=== PATIENT | male | born 1980 | race African-American/Black ===

== ENCOUNTER 2016-11-30 12:42 | Emergency (ER) | payer SELFPAY ==
[~2016-11-30 12:42] MED LIST: FLUO20TA20 PO; QUET100 PO
[2016-11-30 12:44] VITALS: BP 109/71; PULSE 88; RESP 15; TEMP 97.7; O2SAT 99
--- NOTE | 2016-11-30 12:55 | PD ---
Physical Exam Date Seen by Provider: Nov 30, 2016 Time Seen by Provider: 12:53 Data Data Last Documented VS Vital Signs Date Time Temp Pulse Resp B/P Pulse Ox O2 Delivery O2 Flow Rate FiO2 11/30/16 12:44 97.7 88 15 109/71 99 MDM Supervised Visit with CELSO: No Narrative Course 36 YO M with complaint of suicidal ideation. Denies specific plan. History of depression. States "been thinking of killing myself since yesterday." States "I haven't been taking my meds." Vitals reviewed. Patient seen in triage, awaiting bed placement. Fiona Ahn Nov 30, 2016 12:55
--- NOTE | 2016-11-30 13:25 | PD ---
HPI Chief Complaint: Suicide Ideation/Attempt Time Seen by Provider: 13:10 Travel History International Travel<30 days: No Contact w/Intl Traveler<30days: No Traveled to known affect area: No History of Present Illness HPI 36-year-old Afro-[place] male presents to emergency Department with suicidal ideations. He is currently voluntary. He states a plan of taking about cutting his wrists. Patient has been Boyle act in the past, and was on antidepressant medications but states he has not been taking any medications for a couple of months. The patient denies any medical complaints. He is currently cooperative and appropriate. He denies any alcohol or drug abuse currently. He has no known drug allergies. PFSH Past Medical History Anxiety: Yes Depression: Yes Genitourinary: No Musculoskeletal: No Neurologic: No Reproductive: No Respiratory: No Past Surgical History Abdominal Surgery: No Cardiac Surgery: No Ear Surgery: No Endocrine Surgery: No Eye Surgery: No Genitourinary Surgery: No Gynecologic Surgery: No Oral Surgery: No Thoracic Surgery: No Social History Alcohol Use: Yes Tobacco Use: No Substance Use: Yes Allergies-Medications (Allergen,Severity, Reaction): Coded Allergies: No Known Allergies (Unverified , 12/23/15) Reported Meds & Prescriptions Reported Meds & Active Scripts Active Quetiapine Fumarate 100 Mg Tab 100 Mg PO HS 15 Days Fluoxetine Hcl (Fluoxetine HCl) 20MG Cap 20 Mg PO DAILY 15 Days Review of Systems Except as stated in HPI: all other systems reviewed are Neg General / Constitutional: No: Fever Eyes: No: Visual changes HENT: No: Headaches Cardiovascular: No: Chest Pain or Discomfort Respiratory: No: Shortness of Breath Gastrointestinal: No: Abdominal Pain Genitourinary: No: Dysuria Musculoskeletal: No: Pain Skin: No Rash Neurologic: No: Weakness Psychiatric: Positive: Depression, Suicidal Ideations Endocrine: No: Polydipsia Hematologic/Lymphatic: No: Easy Bruising Physical Exam Narrative GENERAL: Patient appears somewhat blunted but in no acute distress. He is cooperative. SKIN: Warm and dry. Normal color. Normal turgor. No signs of trauma. HEAD: Atraumatic. Normocephalic. EYES: Pupils equal and round. No scleral icterus. No injection or drainage. ENT: No nasal bleeding or discharge. Mucous membranes pink and moist. Pharynx is clear. Airway is patent. NECK: Trachea midline. Supple nontender. CARDIOVASCULAR: Regular rate and rhythm. RESPIRATORY: No accessory muscle use. Clear to auscultation. Breath sounds equal bilaterally. GASTROINTESTINAL: Abdomen soft, non-tender, nondistended. Hepatic and splenic margins not palpable. MUSCULOSKELETAL: Extremities without clubbing, cyanosis, or edema. No obvious deformities. NEUROLOGICAL: Awake and alert. No obvious cranial nerve deficits. Motor grossly within normal limits. Five out of 5 muscle strength in the arms and legs. Normal speech. PSYCHIATRIC: Appropriate mood and affect; insight and judgment normal. Data Data Last Documented VS Vital Signs Date Time Temp Pulse Resp B/P Pulse Ox O2 Delivery O2 Flow Rate FiO2 11/30/16 12:44 97.7 88 15 109/71 99 Orders Complete Blood Count With Diff (11/30/16 13:01) Comprehensive Metabolic Panel (11/30/16 13:01) Psych Screen (11/30/16 13:01) Drug Screen, Random Urine (11/30/16 13:01) Alcohol (Ethanol) (11/30/16 13:01) Diet Regular Basic (11/30/16 Lunch) Nicotine 21 Mg Patch.24 Hr (Habitrol 21 (11/30/16 13:45) Labs Laboratory Tests Test 11/30/16 13:25 White Blood Count 5.5 TH/MM3 Red Blood Count 5.19 MIL/MM3 Hemoglobin 15.4 GM/DL Hematocrit 45.4 % Mean Corpuscular Volume 87.5 FL Mean Corpuscular Hemoglobin 29.6 PG Mean Corpuscular Hemoglobin 33.8 % Concent Red Cell Distribution Width 13.6 % Platelet Count 253 TH/MM3 Mean Platelet Volume 7.4 FL Neutrophils (%) (Auto) 36.3 % Lymphocytes (%) (Auto) 45.2 % Monocytes (%) (Auto) 10.7 % Eosinophils (%) (Auto) 7.3 % Basophils (%) (Auto) 0.5 % Neutrophils # (Auto) 2.0 TH/MM3 Lymphocytes # (Auto) 2.5 TH/MM3 Monocytes # (Auto) 0.6 TH/MM3 Eosinophils # (Auto) 0.4 TH/MM3 Basophils # (Auto) 0.0 TH/MM3 CBC Comment DIFF FINAL Differential Comment Sodium Level 140 MEQ/L Potassium Level 4.2 MEQ/L Chloride Level 103 MEQ/L Carbon Dioxide Level 32.1 MEQ/L Anion Gap 5 MEQ/L Blood Urea Nitrogen 9 MG/DL Creatinine 1.22 MG/DL Estimat Glomerular Filtration 81 ML/MIN Rate Random Glucose 89 MG/DL Calcium Level 8.9 MG/DL Total Bilirubin 0.4 MG/DL Aspartate Amino Transf 23 U/L (AST/SGOT) Alanine Aminotransferase 40 U/L (ALT/SGPT) Alkaline Phosphatase 55 U/L Total Protein 7.4 GM/DL Albumin 3.6 GM/DL Urine Opiates Screen NEG Urine Barbiturates Screen NEG Urine Amphetamines Screen NEG Urine Benzodiazepines Screen NEG Urine Cocaine Screen POS Urine Cannabinoids Screen NEG Ethyl Alcohol Level LESS THAN 3 MG/DL MDM Medical Decision Making Medical Screen Exam Complete: Yes Emergency Medical Condition: Yes Medical Record Reviewed: Yes Differential Diagnosis History of depression. Suicidal ideation. Need for psychiatric eval. Narrative Course Patient appears medically stable at time of exam. Psychiatric labs including serum alcohol and urine drug screen are ordered per protocol. Psych screen is ordered. Patient is medically cleared for psychiatric evaluation. Diagnosis Primary Impression: Depression with suicidal ideation Additional Impression: Medical clearance for psychiatric admission Condition: Stable Artemio Martinez Nov 30, 2016 13:25
[2016-11-30] MEDS ORDERED: NICOTINE 21 MG/24 HR PATCH T-DERMAL ONE (13:45)
[2016-11-30 14:13] LABS: BASOPHIL % 0.5 % (0.0-2.0); EOSINOPHIL # 0.4 TH/MM3 (0-0.4); EOSINOPHIL % 7.3 % (0.0-4.0); HEMATOCRIT 45.4 % (39.0-51.0); HEMO FLAGS DIFF FINAL; LYMPH % 45.2 % (9.0-44.0); LYMPHOCYTE # 2.5 TH/MM3 (1.0-4.8); MEAN CELL VOLUME 87.5 FL (80.0-100.0); MEAN CORPUSCULAR HEMOGLOBIN 29.6 PG (27.0-34.0); MEAN CORPUSCULAR HGB CONC 33.8 % (32.0-36.0); MONO % 10.7 % (0.0-8.0); NEUT % 36.3 % (16.0-70.0); PLATELET COUNT 253 TH/MM3 (150-450); RED BLOOD COUNT 5.19 MIL/MM3 (4.50-5.90); RED CELL DISTRIBUTION WIDTH 13.6 % (11.6-17.2); WHITE BLOOD COUNT 5.5 TH/MM3 (4.0-11.0)
[2016-11-30 14:14] LABS: AMPHETAMINE, URINE NEG (NEG); BARBITURATES, URINE NEG (NEG); COCAINE, URINE POS (NEG)
[2016-11-30 14:23] LABS: ANION GAP 5 MEQ/L (5-15); AST (GOT) 23 U/L (15-37); BICARBONATE 32.1 MEQ/L (21.0-32.0); BLOOD UREA NITROGEN 9 MG/DL (7-18); CHLORIDE 103 MEQ/L (98-107); GLOMERULAR FILTRATION RATE 81 ML/MIN (>89); POTASSIUM 4.2 MEQ/L (3.5-5.1); SODIUM (NA) 140 MEQ/L (136-145)
[2016-11-30 14:24] LABS: ALT (GPT) 40 U/L (12-78)
[2016-11-30 14:26] LABS: ALKALINE PHOSPHATASE 55 U/L (45-117); TOTAL BILIRUBIN ADULT 0.4 MG/DL (0.2-1.0)
[2016-11-30 18:04] VITALS: BP 115/60; PULSE 69; RESP 18; TEMP 98.7; O2SAT 96
[2016-11-30] MEDS ORDERED: OLANZapine 10 MG TAB PO ONE (18:15)
[2016-11-30] MEDS ORDERED: diphenhydrAMINE HCL 50 MG CAP PO ONE (18:15)
[2016-11-30 23:19] VITALS: BP 100/55; PULSE 57; RESP 18
[2016-12-01 02:11] VITALS: BP 109/65; PULSE 65; RESP 20; TEMP 98.9; O2SAT 96
== END 2016-12-01 04:05 ==
LOC: NEPD 12:42 → NEPJ 12-01 04:05
DX: R45.851 Suicidal ideations (principal); F32.9 Major depressive disorder, single episode, unspecified; F41.9 Anxiety disorder, unspecified; Z79.899 Other long term (current) drug therapy
CPT/HCPCS: 80053; 80307; 85025; 99284; Q0163

== ENCOUNTER 2016-12-06 09:10 | Emergency (ER) | payer SELFPAY ==
[~2016-12-06] VITALS: Ht 180.3 cm; Wt 75.9 kg
[2016-12-06 09:10] VITALS: BP 110/64; PULSE 96; RESP 12; TEMP 97.6; O2SAT 97
[2016-12-06 09:12] VITALS: BP 110/64; PULSE 96; RESP 18; TEMP 97.6
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
[2016-12-06 10:44] LABS: AUTOMATED NEUTROPHIL # 2.8 TH/MM3 (1.8-7.7); BASOPHIL % 0.7 % (0.0-2.0); EOSINOPHIL # 0.5 TH/MM3 (0-0.4); EOSINOPHIL % 8.7 % (0.0-4.0); HEMATOCRIT 46.4 % (39.0-51.0); HEMO FLAGS DIFF FINAL; LYMPH % 33.7 % (9.0-44.0); LYMPHOCYTE # 2.1 TH/MM3 (1.0-4.8); MEAN CELL VOLUME 88.3 FL (80.0-100.0); MEAN CORPUSCULAR HEMOGLOBIN 30.7 PG (27.0-34.0); MEAN CORPUSCULAR HGB CONC 34.8 % (32.0-36.0); MONO % 10.7 % (0.0-8.0); NEUT % 46.2 % (16.0-70.0); PLATELET COUNT 256 TH/MM3 (150-450); RED BLOOD COUNT 5.25 MIL/MM3 (4.50-5.90); RED CELL DISTRIBUTION WIDTH 13.7 % (11.6-17.2); WHITE BLOOD COUNT 6.1 TH/MM3 (4.0-11.0)
[2016-12-06 11:10] LABS: ANION GAP 6 MEQ/L (5-15); AST (GOT) 36 U/L (15-37); BICARBONATE 27.8 MEQ/L (21.0-32.0); BLOOD UREA NITROGEN 13 MG/DL (7-18); CHLORIDE 101 MEQ/L (98-107); GLOMERULAR FILTRATION RATE 91 ML/MIN (>89); SODIUM (NA) 135 MEQ/L (136-145)
[2016-12-06 11:11] LABS: ALT (GPT) 62 U/L (12-78)
[2016-12-06 11:13] LABS: ALKALINE PHOSPHATASE 53 U/L (45-117); TOTAL BILIRUBIN ADULT 0.5 MG/DL (0.2-1.0)
[2016-12-06 13:23] VITALS: BP 138/72; PULSE 78; RESP 18; O2SAT 99
[2016-12-06 16:29] VITALS: BP 130/89; PULSE 72; RESP 18; O2SAT 100
[2016-12-06] MEDS ORDERED: SERO100T PO (17:45)
[2016-12-06] MEDS ORDERED: FLUO20CA12 PO (17:45)
[2016-12-06 19:21] VITALS: BP 107/63; PULSE 75; RESP 16; O2SAT 96
[2016-12-06 22:21] VITALS: BP 107/55; PULSE 67; RESP 20
[2016-12-07 05:56] VITALS: BP 106/61; PULSE 75; RESP 20
[2016-12-07 10:00] VITALS: BP 112/55; PULSE 76; RESP 18
[2016-12-07 18:06] VITALS: BP 115/78; PULSE 82; RESP 18; TEMP 96.5; O2SAT 100
== END 2016-12-07 20:50 ==
LOC: NEPD 09:10 → NEPJ 12-07 20:50
DX: F32.9 Major depressive disorder, single episode, unspecified (principal); R45.851 Suicidal ideations; Z79.899 Other long term (current) drug therapy
CPT/HCPCS: 80053; 80307; 85025; 99285

== ENCOUNTER 2016-12-18 21:36 | Inpatient (IN) | payer SELFPAY ==
[~2016-12-18] VITALS: Ht 177.8 cm; Wt 78.8 kg
[~2016-12-18 21:36] MED LIST changes: +FLUO20CA12 PO; -FLUO20TA20 PO; -QUET100 PO; +SERO100T PO
[2016-12-18 21:39] VITALS: BP 106/66; PULSE 100; RESP 16; TEMP 98.5; O2SAT 95
--- NOTE | 2016-12-19 04:00 | PD ---
HPI Chief Complaint: Psychiatric Symptoms Time Seen by Provider: 03:47 Travel History International Travel<30 days: No Contact w/Intl Traveler<30days: No Traveled to known affect area: No History of Present Illness HPI 36-year-old black male with a history of substance abuse returns to the ER again stating that he is having hallucinations. He states that his hearing voices telling him to hurt himself or hurt someone. The patient appears to be more interested and laying down sleeping then to give a history. He states that he is suffering from mental illness and needs to be admitted. The patient covers up with a blanket and declines to give additional history. He merely mumbles that he is suffering from mental illness and is hearing voices. The patient does admit to substance abuse. He states that he has not used for the past 3-4 days. Patient is also homeless. PFSH Past Medical History Anxiety: Yes Depression: Yes Diminished Hearing: No Genitourinary: No Musculoskeletal: No Neurologic: No Psychiatric: Yes Reproductive: No Respiratory: No Past Surgical History Abdominal Surgery: No Cardiac Surgery: No Ear Surgery: No Endocrine Surgery: No Eye Surgery: No Genitourinary Surgery: No Gynecologic Surgery: No Oral Surgery: No Thoracic Surgery: No Social History Alcohol Use: No Tobacco Use: No Substance Use: Yes Allergies-Medications (Allergen,Severity, Reaction): Coded Allergies: No Known Allergies (Unverified , 12/18/16) Reported Meds & Prescriptions Reported Meds & Active Scripts Active Reported Seroquel (Quetiapine Fumarate) 100 Mg Tab 100 Mg PO HS Fluoxetine (Fluoxetine HCl) 20 Mg Capsule 20 Mg PO DAILY Review of Systems ROS Limitations: Uncooperative, Poor Historian Physical Exam Narrative GENERAL: Well-nourished, well-developed patient. SKIN: Warm and dry. HEAD: Normocephalic and atraumatic. EYES: No scleral icterus. No injection or drainage. ENT: No nasal drainage noted. Mucous membranes pink. Airway patent. NECK: Supple, trachea midline. Moves head freely without obvious discomfort. CARDIOVASCULAR: Regular rate and rhythm without murmurs, gallops, or rubs. RESPIRATORY: Breath sounds equal bilaterally. No accessory muscle use. GASTROINTESTINAL: Abdomen soft, non-tender, nondistended. EXTREMITIES: No cyanosis or edema. BACK: Nontender without obvious deformity. No CVA tenderness. NEURO: Patient is alert and oriented. no sensorimotor deficits. Nonfocal. Normal speech. PSYCH: Patient reports having auditory hallucinations reporting that the voices are telling him to do self-harm or harm to others. Data Data Last Documented VS Vital Signs Date Time Temp Pulse Resp B/P (MAP) Pulse Ox O2 Delivery O2 Flow Rate FiO2 12/18/16 21:39 98.5 100 16 106/66 (79) 95 Room Air Orders Orders Psych Screen (12/19/16 03:54) Drug Screen, Random Urine (12/19/16 03:54) MDM Medical Decision Making Medical Screen Exam Complete: Yes Emergency Medical Condition: Yes Medical Record Reviewed: Yes Differential Diagnosis MDM: High Differential diagnoses: Schizophrenia, schizoaffective disorder, bipolar, anxiety, depression, adjustment reaction, mood disorder NOS, psychosis NOS, substance induced mood disorder, malingering. Mental health screening discussed with the patient. Psychiatric screen ordered. Narrative Course Mental health screening discussed with the patient. Psychiatric screen ordered. The patient has been medically cleared. The only laboratory tests have ordered today as a urine drug screen again. I suspect the patient is still using and is malingering to ascertain undomiciled. The patient on my history and exam is more interested in sleeping then getting evaluated for his voices. This is medical clearance for psychiatric admission, substance abuse, malingering Diagnosis Primary Impression: Medical clearance for psychiatric admission Additional Impressions: Polysubstance dependence Malingering Condition: Rich Baird Dec 19, 2016 04:00
[2016-12-19 08:32] VITALS: BP 107/64; PULSE 74; RESP 14; O2SAT 98
[2016-12-19 16:45] VITALS: BP 147/77; PULSE 63; RESP 16; TEMP 98.4; O2SAT 97
[2016-12-19 22:18] VITALS: BP 115/64; PULSE 71; RESP 16; O2SAT 99
[2016-12-20 02:00] VITALS: BP 129/67; PULSE 68; RESP 18; O2SAT 96
[2016-12-20 06:38] VITALS: BP 109/58; PULSE 58; RESP 19; O2SAT 97
--- NOTE | 2016-12-20 07:35 | PD ---
History of Present Illness Chief Complaint: Psychiatric Symptoms Time Seen by Provider: 07:15 Travel History International Travel<30 Days: No Contact w/Intl Traveler<30days: No Known affected area: No Legal Status Legal Status: Voluntary History of Present Illness: History of Present Illness HPI 36-year-old black male with a history of substance abuse and substance induced psychotic disorder who presents to the ED for evaluation and reporting auditory hallucinations . He states that his hearing voices telling him to hurt himself or hurt someone. At the time of his arrival to ED he was not cooperative with evaluation possibly to his intoxicated state. He was moved to J pod for further observation and evaluation. Patient seen. EMR reviewed. His last psychiatric admission was in November of 2015. Current toxicology is positive for cocaine. The patient is seen again in in J pod. He is an AA male with dread s. His hygiene is poor. His speech is very soft tone. He answers questions but does not initiate interaction. he appears internally preoccupied. He continues to endorse A/H " I am hearing voices that tell me to hurt people". He also endorse feeling depressed . Claims has been taking Seroquel up until his presenting to ED. PFSH Past Medical History Anxiety: Yes Depression: Yes Diminished Hearing: No Genitourinary: No Musculoskeletal: No Neurologic: No Psychiatric: Yes Reproductive: No Respiratory: No Tetanus Vaccination: Unknown Past Surgical History Abdominal Surgery: No Cardiac Surgery: No Ear Surgery: No Endocrine Surgery: No Eye Surgery: No Genitourinary Surgery: No Gynecologic Surgery: No Oral Surgery: No Thoracic Surgery: No Psychiatric History Psychiatric History Hx Psychiatric Treatment: One previous psychiatric [place] [facility] Has been receiving services at [facility] History of Inpatient Treatment: Yes Guns or firearms in home: No Social History Single male. Homeless x 2 months. Unemployed. Hx Alcohol Use: No Hx Tobacco Use: No Hx Substance Use: Yes Substance Use Type: Cocaine Other Substances Used: MINIMIZES USE. WAS HERE November, POSITIVE FOR COCAINE Hx of Substance Use Treatment: No Family Psychiatric History Unknown. Allergies-Medications (Allergen,Severity, Reaction): Coded Allergies: No Known Allergies (Unverified , 12/19/16) Reported Meds & Prescriptions Reported Meds & Active Scripts Active Reported Seroquel (Quetiapine Fumarate) 100 Mg Tab 100 Mg PO HS Fluoxetine (Fluoxetine HCl) 20 Mg Capsule 20 Mg PO DAILY Review of Systems Except as stated in HPI: all other systems reviewed are Neg Exam Alert: Yes [place]: Person (ox4) Mood: Depressed Affect: Restricted Speech: Clear Eye Contact: None Memory Intact: Comment (not impaired) Hallucinations: Auditory (command type) Delusions: No Suicidal: Ideation (denies any) Homicidal: Ideation (denies any) Insight/Judgement Poor. Not impaired. MDM Medical Decision Making Medical Record Reviewed: Yes Assessment/Plan 36-year-old black male with a history of substance abuse and substance induced psychotic disorder who presents to the ED for evaluation and reporting auditory hallucinations. Patient with positive toxicology for cocaine. Patient continues to report auditory hallucinations after extended period of time in J pod. Patient at this time meets criteria for inpatient treatment for further evaluation, initiate treatment and maintain safety. Admit to inpatient Orders Orders Diet Regular Basic (12/19/16 Breakfast) Consult [facility] I&C Technician (12/19/16 ) Diet Regular Basic (12/19/16 Dinner) Diet Regular Basic (12/20/16 Breakfast) Results Vital Signs Date Time Temp Pulse Resp B/P (MAP) Pulse Ox O2 Delivery O2 Flow Rate FiO2 12/20/16 06:38 58 19 109/58 (75) 97 12/20/16 02:00 68 18 129/67 (87) 96 Room Air 12/19/16 22:18 71 16 115/64 (81) 99 Room Air 12/19/16 16:45 98.4 63 16 147/77 (100) 97 12/19/16 08:32 74 14 107/64 (78) 98 Room Air Laboratory Tests Test 12/19/16 22:04 Urine Opiates Screen NEG Urine Barbiturates Screen NEG Urine Amphetamines Screen NEG Urine Benzodiazepines Screen NEG Urine Cocaine Screen POS Urine Cannabinoids Screen NEG Diagnosis Primary Impression: Substance or medication-induced psychotic disorder Additional Impression: Polysubstance dependence Admitting Information Admitting Physician Requests: Admit Condition: Stable Problem Qualifiers Primary Impression: Substance or medication-induced psychotic disorder Qualified Codes: F19.951 - Other psychoactive substance use, unspecified with psychoactive substance-induced psychotic disorder with hallucinations Anna Marie Baumann [employer] Dec 20, 2016 07:35
[2016-12-20] MEDS ORDERED: ALUMINUM/MAGNESIUM/SIMETH 30 ML CUP PO PRN (07:45)
[2016-12-20] MEDS ORDERED: ACETAMINOPHEN 325 MG TAB PO PRN (07:45)
[2016-12-20] MEDS ORDERED: MAGNESIUM HYDROXIDE SUSP 30 ML CUP PO PRN (07:45)
[2016-12-20] MEDS ORDERED: HALOPERIDOL 5 MG TAB PO ONE (07:45)
[2016-12-20] MEDS: FLUoxetine HCL 20 MG CAP PO SCH (09:05)
[2016-12-20 10:16] VITALS: BP 114/65; PULSE 77; RESP 18; TEMP 98.1; O2SAT 99
[2016-12-20 17:42] VITALS: BP 110/69; PULSE 85; RESP 18; TEMP 98.1; O2SAT 96
[2016-12-20] MEDS: QUEtiapine FUMARATE 100 MG TAB PO SCH (21:28)
[2016-12-21 06:01] VITALS: BP 142/63; PULSE 48; RESP 17; TEMP 98; O2SAT 95
[2016-12-21] MEDS: FLUoxetine HCL 20 MG CAP PO SCH (08:36)
--- NOTE | 2016-12-21 10:15 | HHI.HP ---
Provisional Diagnosis Admission Date Dec 20, 2016 at 07:39 [place] I. Cocaine abuse Certification of Person's Competence To Provide Express and Informed Consent I have personally examined Krish Valenzuela , a person being served at [facility] on, Dec 21, 2016 10:11. Express and informed consent means consent voluntarily given in writing, by a competent person, after sufficient explanation and disclosure of the subject matter involved to enable the person to make a knowing and willful decision without any element of force, fraud, deceit, duress, or other form of constraint or coercion. This person is 18 years of age or older, is not now known to be incompetent to consent to treatment with a guardian advocate, and does not have a health care surrogate or proxy currently making medical treatment decisions. I have found this person to be one of the following: [x] Competent to provide express and informed consent, as defined above, for voluntary admission to this facility and is competent to provide express and informed consent for treatment. He/she has the consistent capacity to make well reasoned, willful, and knowing decisions concerning his or her medical or mental health treatment. The person fully and consistently understands the purpose of the admission for examination/placement and is fully capable of personally exercising all rights assured [place] [] Incompetent to provide express and informed consent to voluntary admission, and this is incompetent to provide express and informed consent to treatment. The person must be transferred to involuntary status and a petition for a guardian advocate filed with the Circuit Court. [] Refusing to provide express and informed consent to voluntary admission but is competent to provide express and informed consent for treatment. The person must be discharged or transferred to involuntary status. Form shall be completed within 24 hours of a person's arrival at the receiving facility and filed in the clinical record of each person: 1. Admitted on a voluntary basis 2. Permitted to provide express and informed consent to his/her own treatment 3. Allowed to transfer from involuntary to voluntary status 4. Prior to permitting a person to consent to his or her own treatment after having been previously found incompetent to consent to treatment. History of Present Illness Capacity: Has Capacity HPI 36-year-old male seen in emergency department prior to evaluation [facility] [employer] and admission. Patient admitted due to reports of auditory hallucinations telling him to hurt others. Patient has history of cocaine abuse dating back one year ago. He was positive for cocaine on this admission. He speaks softly or not at all. Patient admitted for further evaluation and possible treatment. He is not communicative with this physician and wants to sleep. Review of Systems Except as stated in HPI: all other systems reviewed are Neg Past Psych History Psychological trauma history Denied Violence risk - others (6 mos) Moderate Violence risk - self (6 mos) Moderate Substance Abuse History Drugs/Alcohol past 12 months At least one year history of cocaine abuse. Past Family Social History Coded Allergies: No Known Allergies (Unverified , 12/19/16) Reported Medications Quetiapine (Seroquel) 100 Mg Tab, 100 MG PO HS for MENTAL HEALTH, #30 TAB 0 Refills 12/06/16 Fluoxetine (Fluoxetine) 20 Mg Capsule, 20 MG PO DAILY for MENTAL HEALTH, #30 CAP 0 Refills 12/06/16 Current Medications Medications (Trade) Dose Ordered Sig/Dara Route Start Time Stop Time Status Last Admin (Tylenol) 650 mg Q4H PRN PO 12/20/16 07:45 (Milk Of Magnesia Liq) 30 ml DAILY PRN PO 12/20/16 07:45 (Mag-Al Plus Susp Liq) 30 ml Q6H PRN PO 12/20/16 07:45 (PROzac) 20 mg DAILY PO 12/20/16 09:00 12/21/16 08:36 (SEROquel) 100 mg HS PO 12/20/16 21:00 12/20/16 21:28 Family History Declined to answer Social History Declined to answer Patient's Strengths (min. 2) Resilient and has access to healthcare Physical Exam GENERAL: SKIN: Warm and dry. HEAD: Normocephalic. EYES: No scleral icterus. No injection or drainage. NECK: Supple, trachea midline. No JVD or lymphadenopathy. CARDIOVASCULAR: Regular rate and rhythm without murmurs, gallops, or rubs. RESPIRATORY: Breath sounds equal bilaterally. No accessory muscle use. GASTROINTESTINAL: Abdomen soft, non-tender, nondistended. MUSCULOSKELETAL: No cyanosis, or edema. BACK: Nontender without obvious deformity. No CVA tenderness. Vital Signs Vital Signs Date Time Temp Pulse Resp B/P (MAP) Pulse Ox O2 Delivery O2 Flow Rate FiO2 12/21/16 06:01 98.0 48 17 142/63 (89) 95 12/20/16 02:00 Room Air Mental Status Examination Speech: Other (minimal and soft) Orientation: x3 Memory: Unremarkable Thought Process: Organized, Goal Directed Thought Content: Unremarkable Hallucination Type: None Attention and Concentration: Good Suicidal Ideation: No Previous Suicide Attempts: No Homicidal Ideation: No Previous Homicide Attempts: No Insight: Fair Judgment: WNL Affect: Other Affect if Inappropriate: Blunt Mood: Appropriate Motor Activity: Normal gait Assessment & Plan Problem List: (1) Cocaine abuse ICD Codes: F14.10 - Cocaine abuse, uncomplicated Assessment & Plan Estimated LOS: days will observe over the next 24-48 hours for marco antonio smita psychotic symptoms or not. Will observe for dangerousness to self or others. Blair Molina MD Dec 21, 2016 10:15
[2016-12-21 15:04] LABS: ANION GAP 9 MEQ/L (5-15); BICARBONATE 29.9 MEQ/L (21.0-32.0); BLOOD UREA NITROGEN 17 MG/DL (7-18); CHLORIDE 101 MEQ/L (98-107); GLOMERULAR FILTRATION RATE 61 ML/MIN (>89); POTASSIUM 4.4 MEQ/L (3.5-5.1); SODIUM (NA) 140 MEQ/L (136-145)
[2016-12-21 15:07] LABS: HDL CHOLESTEROL 76.5 MG/DL (40.0-60.0); LDL CHOLESTEROL 48 MG/DL (0-99)
[2016-12-21] MEDS: NICOTINE 21 MG/24 HR PATCH T-DERMAL SCH (17:08)
[2016-12-21 17:40] VITALS: BP 113/55; PULSE 78; RESP 18; TEMP 98.2; O2SAT 96
--- NOTE | 2016-12-21 18:44 | EKG ---
Date Performed: 12/20/2016 Time Performed: 12:15:28 PTAGE: 36 years EKG: Sinus rhythm NORMAL ECG NO PREVIOUS TRACING DOCTOR: Bandar Ricci Interpretating Date/Time 12/21/2016 18:42:55
[2016-12-21] MEDS: QUEtiapine FUMARATE 100 MG TAB PO SCH (21:02)
[2016-12-22 06:24] VITALS: BP 105/55; PULSE 72; RESP 18; TEMP 98.3; O2SAT 100
[2016-12-22] MEDS: FLUoxetine HCL 20 MG CAP PO SCH (08:47)
[2016-12-22] MEDS: REMOVE OLD NICODERM (NICOTINE) PATCH T-DERMAL SCH (08:48)
[2016-12-22] MEDS: NICOTINE 21 MG/24 HR PATCH T-DERMAL SCH (08:48)
[2016-12-22 10:26] LABS: HEMOGLOBIN A1a 0.8 %; HEMOGLOBIN A1b 0.9 %; HEMOGLOBIN Ao 85.9 %; HEMOGLOBIN F 1.1 %; HEMOGLOBIN LA1C 1.8 %; HEMOGLOBIN P3 3.6 %
--- NOTE | 2016-12-22 15:39 | HHI.PYPN ---
Subjective Remarks Pt seen and discussed with staff. He was selectively mute with RN this morning, but later asked RN for tylenol for a headache. When presented with medication he stated, "that can be traced" and declined medications. He denied AVH (but appears internally stimulated) today but expressed paranoid ideations.He states that he feels as if someone is in the room with him watching him and planning to harm him. He reports that he is tolerating seroquel without side effects and it has been helpful in past with remission of psychosis. He denies SI/HI Objective Alert: Yes [place]: Person, Place, Date, Situation Mood: Depressed Affect: Restricted Memory Intact: Comment (intact) Hallucinations: Auditory (appears internally stimulated) Delusions: Yes Delusion Type: Paranoid Suicidal: Ideation (denies any) Homicidal: Ideation (denies any) Insight/Judgment poor Vitals/IOs Vital Signs Date Time Temp Pulse Resp B/P (MAP) Pulse Ox O2 Delivery O2 Flow Rate FiO2 12/22/16 06:24 98.3 72 18 105/55 (72) 100 12/20/16 02:00 Room Air Assessment & Plan Problem List: (1) Psychosis ICD Codes: F29 - Unspecified psychosis not due to a substance or known physiological condition (2) Cocaine abuse ICD Codes: F14.10 - Cocaine abuse, uncomplicated Assessment & Plan Will increase seroquel to 200mg PO QHS to target psychosis. Estimated LOS: days Justification for Cont. Inpt. impairments in reality testing Problem Qualifiers (1) Psychosis: Qualified Codes: F28 - Other psychotic disorder not due to a substance or known physiological condition Marci Medina MD Dec 22, 2016 15:39
[2016-12-22 16:12] VITALS: BP 114/60; PULSE 74; RESP 18; TEMP 98.1; O2SAT 100
[2016-12-22] MEDS: QUEtiapine FUMARATE 200 MG TAB PO SCH (21:26)
[2016-12-23 06:11] VITALS: BP 98/55; PULSE 65; RESP 18; TEMP 98.1
[2016-12-23] MEDS: REMOVE OLD NICODERM (NICOTINE) PATCH T-DERMAL SCH (08:32)
[2016-12-23] MEDS: NICOTINE 21 MG/24 HR PATCH T-DERMAL SCH (08:32)
[2016-12-23] MEDS: FLUoxetine HCL 20 MG CAP PO SCH (08:32)
--- NOTE | 2016-12-23 10:35 | HHI.PYPN ---
Subjective Remarks Patient seen and examined with nurse. Chart reviewed. Case discussed with nursing staff who reports patient is preoccupied and vague and somewhat guarded. On my examination today, the patient denies audiovisual hallucinations but does appear somewhat to be responding to internal stimuli. He denies any SI or HI. He says that he had been off of his psychiatric medications for a few days prior to presentation. He does endorse some residual paranoia, although this is improving now that his psychiatric medications have been resumed. He denies side effects from medications and says that he is at his normally prescribed outpatient doses. No physical complaints besides a sore throat/cough. We discuss his substance use issues briefly. Review of Systems Except as stated in HPI: all other systems reviewed are Neg Objective Alert: Yes [place]: Person, Place, Date, Situation Mood: Calm (somewhat dysphoric ) Affect: Flat Memory Intact: Comment (intact) Hallucinations: Auditory (Denies AVH but appears to be responding to internal stimuli.) Delusions: Yes Delusion Type: Paranoid Suicidal: Ideation (Denies SI) Homicidal: Ideation (Denies HI) Insight/Judgment Poor Remarks No motor abnormalities noted. Thought process linear. Grooming and hygiene fair. Labs Labs reviewed. Mildly decreased GFR noted. Toxicology results noted. Vitals/IOs Vital Signs Date Time Temp Pulse Resp B/P (MAP) Pulse Ox O2 Delivery O2 Flow Rate FiO2 12/23/16 06:11 98.1 65 18 98/55 (69) 12/22/16 16:12 100 12/20/16 02:00 Room Air Assessment & Plan Problem List: (1) Psychosis ICD Codes: F29 - Unspecified psychosis not due to a substance or known physiological condition Status: Acute (2) Cocaine abuse ICD Codes: F14.10 - Cocaine abuse, uncomplicated Status: Chronic Assessment & Plan Continue Seroquel 200 mg at bedtime and Prozac 20 mg daily as ordered. I offered patient medication adjustment, but he says he normally response to current doses. Symptomatic treatment for patient sore throat/cough. Encourage fluids. Check a BMP in the morning. Continue to monitor on an inpatient unit. Continue other medications and care as ordered. Justification for Cont. Inpt. Resolving impairment in reality construction. Risk for decompensation in less restrictive environment. Discharge Planning Pending psychiatric stabilization. Possible middle of the week discharge. Request HC Surrog/Guard Advoc?: No Problem Qualifiers (1) Psychosis: Qualified Codes: F28 - Other psychotic disorder not due to a substance or known physiological condition Darrel Sun MD Dec 23, 2016 10:35
[2016-12-23] MEDS: BENZOCAINE-MENTHOL (SUGAR FREE) 15 MG-3.6 MG LOZENGE BUCCAL PRN ×2 (15:41→22:00)
[2016-12-23] MEDS: DEXTROMETHORPHAN SYRUP 7.5MG/5ML UDC PO PRN (15:41)
[2016-12-23 16:43] VITALS: BP 104/61; PULSE 88; RESP 18; TEMP 98.2; O2SAT 92
[2016-12-23] MEDS: QUEtiapine FUMARATE 200 MG TAB PO SCH (20:11)
[2016-12-24 05:45] VITALS: BP 113/56; PULSE 65; RESP 18; TEMP 98.1; O2SAT 100
[2016-12-24 06:05] VITALS: BP 113/56; PULSE 65; RESP 18; TEMP 98.1; O2SAT 100
[2016-12-24] MEDS: NICOTINE 21 MG/24 HR PATCH T-DERMAL SCH (08:18)
[2016-12-24] MEDS: DEXTROMETHORPHAN SYRUP 7.5MG/5ML UDC PO PRN ×2 (08:18→21:32)
[2016-12-24] MEDS: FLUoxetine HCL 20 MG CAP PO SCH (08:18)
[2016-12-24] MEDS: REMOVE OLD NICODERM (NICOTINE) PATCH T-DERMAL SCH (08:19)
[2016-12-24] MEDS: BENZOCAINE-MENTHOL (SUGAR FREE) 15 MG-3.6 MG LOZENGE BUCCAL PRN ×2 (08:20→21:31)
[2016-12-24 13:08] LABS: BICARBONATE 29.7 MEQ/L (21.0-32.0); POTASSIUM 4.3 MEQ/L (3.5-5.1)
--- NOTE | 2016-12-24 14:42 | HHI.PYPN ---
Subjective Remarks Patient seen and examined. Chart reviewed. Case discussed in treatment team. Per nurse, patient has been somewhat flirtatious with females although otherwise in good behavioral control. Occupational therapist notes that the patient is not attending groups. Counselor subsequently informs me that the patient does not presently have a bed at the sober living by which he purports to have been accepted. On my examination today, the patient says that he is feeling better. His mood is improving. He slept okay last night. He denies audiovisual hallucinations. He denies suicidal or homicidal ideation. He is under the impression that he has a bed at a sober living house today, but see report from Counselor above. Denies side effects from medications. No new physical complaints. Review of Systems Except as stated in HPI: all other systems reviewed are Neg Objective Alert: Yes [place]: Person, Place, Date, Situation Mood: Depressed (improving) Affect: Blunted Memory Intact: Comment (remains intact) Hallucinations: Other (Denies AVH) Delusions: No Delusion Type: Other (none elicited) Suicidal: Ideation (Denies SI) Homicidal: Ideation (Denies HI) Insight/Judgment Poor Remarks No motor abnormalities noted. Thought process linear. Grooming and hygiene fair. Labs Test 12/24/16 11:31 Blood Urea Nitrogen 12 MG/DL Creatinine 1.13 MG/DL Random Glucose 86 MG/DL Calcium Level 8.8 MG/DL Sodium Level 138 MEQ/L Potassium Level 4.3 MEQ/L Chloride Level 100 MEQ/L Carbon Dioxide Level 29.7 MEQ/L Anion Gap 8 MEQ/L Estimat Glomerular Filtration Rate 88 ML/MIN Labs reviewed. GFR improved. Vitals/IOs Vital Signs Date Time Temp Pulse Resp B/P (MAP) Pulse Ox O2 Delivery O2 Flow Rate FiO2 12/24/16 06:05 98.1 65 18 113/56 (75) 100 Assessment & Plan Problem List: (1) Other recurrent depressive disorders ICD Codes: F33.8 - Other recurrent depressive disorders Status: Acute (2) Cocaine abuse ICD Codes: F14.10 - Cocaine abuse, uncomplicated Status: Chronic Assessment & Plan Psychosis resolved, some residual mood symptoms. Titrate Prozac to 30mg daily for mood. Continue Seroquel as ordered. Continue to monitor on the inpatient unit. Continue other medications and care as ordered. Justification for Cont. Inpt. Risk for decompensation Discharge Planning Counselor to explore with patient regarding alternative sober living environments. Anticipate discharge within the next day or 2. Request HC Surrog/Guard Advoc?: No Darrel Sun MD Dec 24, 2016 14:42
[2016-12-24 18:08] VITALS: BP 120/60; PULSE 80; RESP 18; TEMP 99; O2SAT 97
[2016-12-24] MEDS: QUEtiapine FUMARATE 200 MG TAB PO SCH (20:25)
[2016-12-25 06:25] VITALS: BP 124/82; PULSE 80; RESP 16; TEMP 99.6; O2SAT 98
--- NOTE | 2016-12-25 08:50 | PD.TTN ---
Patient Problems 1. Discharge planning 2. Medication compliance 3. Knowledge deficit 4. Lack of coping skills Progress Toward Goals Provider Present: Dr. Teresa Sun Provider Input: Patient is in need to medication stablization prior to discharge. Nurse(s) Present: Elizabeth Nurse(s) Input: Patient is questioning his diagnosis and is not appropriately treating his cold symptoms. Patient is compliant with medications. Psychiatric Counselors Present: SHI Cox Psych Therapist Input: Patient has been flirtatous on the unit. Patient is very discharge focused and is wanting to go to a sober living/shelter house. Group Spec/RT/OT/MANNING Present: NIGEL Cerna Group Spec/RT/OT/MANNING Input: Patient does not attend group. Khadijah JonasAlejandra Dec 25, 2016 08:50
[2016-12-25] MEDS ORDERED: FLUoxetine HCL 10 MG CAP PO SCH (09:00)
[2016-12-25] MEDS: REMOVE OLD NICODERM (NICOTINE) PATCH T-DERMAL SCH (09:00)
[2016-12-25] MEDS: NICOTINE 21 MG/24 HR PATCH T-DERMAL SCH (09:38)
[2016-12-25] MEDS: BENZOCAINE-MENTHOL (SUGAR FREE) 15 MG-3.6 MG LOZENGE BUCCAL PRN (09:52)
[2016-12-25] MEDS: DEXTROMETHORPHAN SYRUP 7.5MG/5ML UDC PO PRN (09:52)
[2016-12-25] MEDS ORDERED: QUET1TAB9 PO (11:55)
[2016-12-25] MEDS ORDERED: FLUO10CA4 PO (11:55)
--- NOTE | 2016-12-25 11:55 | HHI.DS ---
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 Patient admitted due to reports of auditory hallucinations telling him to hurt others. Patient has history of cocaine abuse dating back one year ago. He was positive for cocaine on this admission. He speaks softly or not at all. Patient admitted for further evaluation and possible treatment. He is not communicative with this physician and wants to sleep. Tobacco Use In Past 30 Days: Refused To Answer Alcohol Use: 2-4 Times Per Month Hospital Course Patient was admitted to a locked, inpatient psychiatric unit. Appropriate precautions in place throughout patient's hospital stay. Patient was seen and examined daily on the unit by psychiatry and also visited by counselor. Psychiatric medications were adjusted. Patient tolerated medications well without side effects. Patient had improvement in presenting psychiatric symptomatology. There was no evidence of any suicidality or homicidality on the inpatient unit. Patient's behavior remained in good control and the patient was medication compliant. On the day of discharge: Patient seen and examined with counselor. Chart reviewed. Case discussed with nursing staff. No behavioral issues noted overnight. Case also discussed with counselor who reports that the patient has a bed at sober living facility today. On my examination, the patient is requesting discharge from the inpatient psychiatric unit today so that he can go to the sober living. He denies any suicidal or homicidal ideation, intent or plan on direct questioning and contracts for safety. He denies any audiovisual hallucinations. Some mild residual paranoia but no other delusional material. Mood is described as good. No depressive or hypomanic/manic symptoms. Patient denies side effects from medications. No physical complaints. Weighing the acute, chronic, and protective factors and based on the available evidence, I traffic lieutenant to a reasonable degree of medical certainty that the patient does not presently meet criteria for involuntary psychiatric hospitalization. Given this, and given that he is requesting discharge today, I will arrange for the patient's discharge today to sober living with psychiatric follow-up as arranged by counselor. Patient is also to follow-up with primary care. I did offer the patient a titration of his Seroquel on discharge to manage residual paranoia, but he declines med change and feels that his current psychotropics are adequate. I have counseled the patient regarding warning signs for need to return to the psychiatric emergency room as part of a general safety plan. Results Blood Pressure 124 / 82 Vital Signs Date Time Temp Pulse Resp B/P (MAP) Pulse Ox O2 Delivery O2 Flow Rate FiO2 12/25/16 06:25 99.6 80 16 124/82 (96) 98 Laboratory Tests Test 12/24/16 11:31 Estimat Glomerular Filtration Rate 88 ML/MIN (>89) Laboratory Results Test 12/21/16 14:12 Cholesterol Level 158 MG/DL (120-200) HDL Cholesterol 76.5 MG/DL (40.0-60.0) Hemoglobin A1c 5.3 % (4.3-6.0) LDL Cholesterol 48 MG/DL (0-99) Triglycerides Level 166 MG/DL (42-150) Summary of Procedures None done Imaging None done Pending results at discharge: No Medications # of Antipsychotic meds at D/C: 1 Approp Antipsych med options 1 - Minimum of three failed multiple trials of monotherapy. 2 - Documented plan to taper to monotherapy due to previous use of multiple meds OR cross-taper in progress at D/C. 3 - Documentation of augmentation of Clozapine. 4 - Justification other than those listed in allowable values 1-3, document here : Discharge Discharge Date: Dec 25, 2016 Discharge Diagnosis: (1) Cocaine abuse with unspecified cocaine-induced disorder Diagnosis: Principal (drug-induced mixed mood and psychotic disorder, improved versus admission) ICD Code: F14.19 - Cocaine abuse with unspecified cocaine-induced disorder Status: Chronic Mental Status Exam at Disch Patient is casually dressed. Patient is well groomed. Patient is awake and alert and oriented person in hospital at least. No evidence of delirium. No motor abnormalities appreciated. Speech is within normal limits for rate, tone , volume. Mood is described as good. Affect is a little blunted still. Thought process linear. Perhaps some mild residual paranoia, improved versus admission. No other delusions elicited. Denies audiovisual hallucinations and does not appear internally stimulated. Denies suicidal or homicidal ideation, intent, or plan and contracts for safety. Insight and judgment fair. Pt Condition on Discharge: Stable Discharge Disposition: Discharge Home Discharge Instructions Diet Instructions: As Tolerated, No Restrictions Activities you can perform: Weight Bearing as Tran Scheduled Appointment: as per counselor's notes New Medications: Fluoxetine (Pmdd) (Fluoxetine (Pmdd)) 10 Mg Cap 30 MG PO DAILY for Mental Health for 7 Days, CAP 3 Refills Quetiapine (Quetiapine) 200 Mg Tab 200 MG PO HS for Mental Health for 7 Days, TAB 3 Refills Discontinued Medications: Fluoxetine (Fluoxetine) 20 Mg Capsule 20 MG PO DAILY for MENTAL HEALTH, #30 CAP 0 Refills Quetiapine (Seroquel) 100 Mg Tab 100 MG PO HS for MENTAL HEALTH, #30 TAB 0 Refills Discharge Time <= 30 minutes Discharge/Advance Care Plan Health Problems: (1) Other recurrent depressive disorders (2) Cocaine abuse Goals to promote your health * To prevent worsening of your condition and complications * To maintain your health at the optimal level Directions to meet your goals Take your medications as prescribed Follow your dietary instruction Follow activity as directed Keep your appointments as scheduled Take your immunizations and boosters as scheduled If your symptoms worsen call your PCP, if no PCP go to Urgent Care Center or Emergency Room For 18/11 questions related to your inpatient stay or results of tests pending at discharge, please contact Dr. Darrel Sun at Smoking is Dangerous to Your Health. Avoid second hand smoking Darrel Sun MD Dec 25, 2016 11:55
== END 2016-12-25 13:40 | DRG 897 ==
LOC: NEPD 21:36 → NEDA 12-20 07:39 → H260 12-20 09:45
PROVIDERS: ADMIT Psychiatry & Neurology Psychiatry; ATTEND Psychiatry & Neurology Psychiatry
DX: F14.151 Cocaine abuse with cocaine-induced psychotic disorder with hallucinations (principal); F41.9 Anxiety disorder, unspecified; Z59.0 Homelessness; Z76.5 Malingerer [conscious simulation]
CPT/HCPCS: 80048; 80061; 80307; 83036; 93005

== ENCOUNTER 2016-12-31 22:06 | Emergency (ER) | payer SELFPAY ==
[~2016-12-31] VITALS: Ht 180.3 cm; Wt 77.0 kg
[~2016-12-31 22:06] MED LIST changes: +FLUO10CA4 PO; -FLUO20CA12 PO; +QUET1TAB9 PO; -SERO100T PO
[2016-12-31 22:08] VITALS: BP 114/77; PULSE 100; RESP 16; TEMP 99.3; O2SAT 98
[2016-12-31 23:42] LABS: AUTOMATED NEUTROPHIL # 3.4 TH/MM3 (1.8-7.7); BASOPHIL % 0.5 % (0.0-2.0); EOSINOPHIL # 0.3 TH/MM3 (0-0.4); EOSINOPHIL % 4.4 % (0.0-4.0); HEMO FLAGS DIFF FINAL; LYMPH % 37.4 % (9.0-44.0); LYMPHOCYTE # 2.6 TH/MM3 (1.0-4.8); MEAN CELL VOLUME 88.7 FL (80.0-100.0); MEAN CORPUSCULAR HEMOGLOBIN 29.9 PG (27.0-34.0); MEAN CORPUSCULAR HGB CONC 33.8 % (32.0-36.0); MONO % 9.7 % (0.0-8.0); PLATELET COUNT 213 TH/MM3 (150-450); RED BLOOD COUNT 4.85 MIL/MM3 (4.50-5.90); RED CELL DISTRIBUTION WIDTH 13.4 % (11.6-17.2)
--- NOTE | 2016-12-31 23:56 | PD ---
HPI Chief Complaint: Psychiatric Symptoms Time Seen by Provider: 22:58 Travel History International Travel<30 days: No Contact w/Intl Traveler<30days: No Traveled to known affect area: No History of Present Illness HPI Patient is a 36-year-old male presenting to the emergency department voluntarily due to suicidal ideations. Patient states she's been feeling this way all day, he states he's been depressed and he is on Prozac but it's not working for him. He reports a previous suicide attempt last year by overdose. Patient also states he's been hearing voices that are telling him to run into traffic. Patient has no physical complaints at this time. PFSH Past Medical History Anxiety: Yes Depression: Yes Diminished Hearing: No Genitourinary: No Musculoskeletal: No Neurologic: No Psychiatric: Yes Reproductive: No Respiratory: No Past Surgical History Abdominal Surgery: No Cardiac Surgery: No Ear Surgery: No Endocrine Surgery: No Eye Surgery: No Genitourinary Surgery: No Gynecologic Surgery: No Oral Surgery: No Thoracic Surgery: No Social History Alcohol Use: No Tobacco Use: No Substance Use: Yes Allergies-Medications (Allergen,Severity, Reaction): Coded Allergies: No Known Allergies (Unverified , 12/31/16) Reported Meds & Prescriptions Reported Meds & Active Scripts Active Quetiapine (Quetiapine Fumarate) 200 Mg Tab 200 Mg PO HS 7 Days Fluoxetine (Pmdd) 10 Mg Cap 30 Mg PO DAILY 7 Days Review of Systems Except as stated in HPI: all other systems reviewed are Neg Psychiatric: Positive: Depression, Suicidal Ideations Physical Exam Narrative GENERAL: Well-developed, well-nourished, alert male. Resting comfortably in no acute distress. SKIN: Warm and dry. HEAD: Atraumatic. Normocephalic. EYES: Pupils equal and round. No scleral icterus. No injection or drainage. ENT: No nasal bleeding or discharge. Mucous membranes pink and moist. NECK: Trachea midline. No JVD. CARDIOVASCULAR: Regular rate and rhythm. RESPIRATORY: No accessory muscle use. Clear to auscultation. Breath sounds equal bilaterally. GASTROINTESTINAL: Abdomen soft, non-tender, nondistended. Hepatic and splenic margins not palpable. MUSCULOSKELETAL: Extremities without clubbing, cyanosis, or edema. No obvious deformities. NEUROLOGICAL: Awake and alert. No obvious cranial nerve deficits. Motor grossly within normal limits. Five out of 5 muscle strength in the arms and legs. Normal speech. PSYCHIATRIC: Depressed mood and affect; insight and judgment normal. Data Data Last Documented VS Vital Signs Date Time Temp Pulse Resp B/P (MAP) Pulse Ox O2 Delivery O2 Flow Rate FiO2 12/31/16 22:08 99.3 100 16 114/77 (89) 98 Orders Orders Complete Blood Count With Diff (12/31/16 23:05) Comprehensive Metabolic Panel (12/31/16 23:05) Psych Screen (12/31/16 23:05) Drug Screen, Random Urine (12/31/16 23:05) Alcohol (Ethanol) (12/31/16 23:05) Potassium Chloride (Kcl) (01/01/17 01:00) Labs Laboratory Tests Test 12/31/16 23:15 12/31/16 23:45 White Blood Count 7.0 TH/MM3 Red Blood Count 4.85 MIL/MM3 Hemoglobin 14.5 GM/DL Hematocrit 43.0 % Mean Corpuscular Volume 88.7 FL Mean Corpuscular Hemoglobin 29.9 PG Mean Corpuscular Hemoglobin Concent 33.8 % Red Cell Distribution Width 13.4 % Platelet Count 213 TH/MM3 Mean Platelet Volume 7.1 FL Neutrophils (%) (Auto) 48.0 % Lymphocytes (%) (Auto) 37.4 % Monocytes (%) (Auto) 9.7 % Eosinophils (%) (Auto) 4.4 % Basophils (%) (Auto) 0.5 % Neutrophils # (Auto) 3.4 TH/MM3 Lymphocytes # (Auto) 2.6 TH/MM3 Monocytes # (Auto) 0.7 TH/MM3 Eosinophils # (Auto) 0.3 TH/MM3 Basophils # (Auto) 0.0 TH/MM3 CBC Comment DIFF FINAL Differential Comment Blood Urea Nitrogen 12 MG/DL Creatinine 1.22 MG/DL Random Glucose 90 MG/DL Total Protein 7.8 GM/DL Albumin 3.5 GM/DL Calcium Level 8.8 MG/DL Alkaline Phosphatase 52 U/L Aspartate Amino Transf (AST/SGOT) 20 U/L Alanine Aminotransferase (ALT/SGPT) 41 U/L Total Bilirubin 0.5 MG/DL Sodium Level 141 MEQ/L Potassium Level 3.2 MEQ/L Chloride Level 104 MEQ/L Carbon Dioxide Level 30.3 MEQ/L Anion Gap 7 MEQ/L Estimat Glomerular Filtration Rate 81 ML/MIN Ethyl Alcohol Level LESS THAN 3 MG/DL Urine Opiates Screen NEG Urine Barbiturates Screen NEG Urine Amphetamines Screen NEG Urine Benzodiazepines Screen NEG Urine Cocaine Screen POS Urine Cannabinoids Screen POS [facility] Medical Decision Making Medical Screen Exam Complete: Yes Emergency Medical Condition: Yes Interpretation(s) Laboratory Tests Test 12/31/16 23:15 12/31/16 23:45 White Blood Count 7.0 TH/MM3 Red Blood Count 4.85 MIL/MM3 Hemoglobin 14.5 GM/DL Hematocrit 43.0 % Mean Corpuscular Volume 88.7 FL Mean Corpuscular Hemoglobin 29.9 PG Mean Corpuscular Hemoglobin Concent 33.8 % Red Cell Distribution Width 13.4 % Platelet Count 213 TH/MM3 Mean Platelet Volume 7.1 FL Neutrophils (%) (Auto) 48.0 % Lymphocytes (%) (Auto) 37.4 % Monocytes (%) (Auto) 9.7 % Eosinophils (%) (Auto) 4.4 % Basophils (%) (Auto) 0.5 % Neutrophils # (Auto) 3.4 TH/MM3 Lymphocytes # (Auto) 2.6 TH/MM3 Monocytes # (Auto) 0.7 TH/MM3 Eosinophils # (Auto) 0.3 TH/MM3 Basophils # (Auto) 0.0 TH/MM3 CBC Comment DIFF FINAL Differential Comment Blood Urea Nitrogen 12 MG/DL Creatinine 1.22 MG/DL Random Glucose 90 MG/DL Total Protein 7.8 GM/DL Albumin 3.5 GM/DL Calcium Level 8.8 MG/DL Alkaline Phosphatase 52 U/L Aspartate Amino Transf (AST/SGOT) 20 U/L Alanine Aminotransferase (ALT/SGPT) 41 U/L Total Bilirubin 0.5 MG/DL Sodium Level 141 MEQ/L Potassium Level 3.2 MEQ/L Chloride Level 104 MEQ/L Carbon Dioxide Level 30.3 MEQ/L Anion Gap 7 MEQ/L Estimat Glomerular Filtration Rate 81 ML/MIN Ethyl Alcohol Level LESS THAN 3 MG/DL Urine Opiates Screen NEG Urine Barbiturates Screen NEG Urine Amphetamines Screen NEG Urine Benzodiazepines Screen NEG Urine Cocaine Screen POS Urine Cannabinoids Screen POS Vital Signs Date Time Temp Pulse Resp B/P (MAP) Pulse Ox O2 Delivery O2 Flow Rate FiO2 12/31/16 22:08 99.3 100 16 114/77 (07) 98 Differential Diagnosis Depression versus mood disorder versus suicidal ideation versus substance abuse versus other Narrative Course Patient is a 36-year-old male that presented voluntarily to the emergency department for psychiatric evaluation due to depression and suicidal ideations. Patient's vital signs are stable. Physical examination is unremarkable. Mental health screening discussed with the patient. Psychiatric screen ordered. CBC reviewed, unremarkable Chemistry with a potassium of 3.2, or replacement ordered. No other acute abnormalities identified. Urine drug screen is positive for marijuana and cocaine Patient was transported to [facility]. He is medically cleared for psychiatric evaluation at this time. Diagnosis Primary Impression: Medical clearance for psychiatric admission Additional Impressions: Substance abuse Hypokalemia Condition: Stable Celine Krishna SPECIAL PROCEDURE TECH Dec 31, 2016 23:55
[2017-01-01 00:01] LABS: ALT (GPT) 41 U/L (12-78); ANION GAP 7 MEQ/L (5-15); AST (GOT) 20 U/L (15-37); BICARBONATE 30.3 MEQ/L (21.0-32.0); BLOOD UREA NITROGEN 12 MG/DL (7-18); CHLORIDE 104 MEQ/L (98-107); GLOMERULAR FILTRATION RATE 81 ML/MIN (>89); POTASSIUM 3.2 MEQ/L (3.5-5.1); SODIUM (NA) 141 MEQ/L (136-145)
[2017-01-01 00:04] LABS: ALKALINE PHOSPHATASE 52 U/L (45-117); TOTAL BILIRUBIN ADULT 0.5 MG/DL (0.2-1.0)
[2017-01-01 00:30] LABS: ALCOHOL LESS THAN 3 MG/DL (0-5)
[2017-01-01] MEDS ORDERED: POTASSIUM CHLORIDE 20 MEQ CONTROLLED RELEASE TAB PO ONE (01:00)
[2017-01-01 02:10] VITALS: BP_SYST 108; BP_SYST 128; BP_DIAS 64; BP_DIAS 66; PULSE 65; PULSE 80; RESP 18; O2SAT 98
[2017-01-01 06:22] VITALS: BP 106/55; PULSE 74; RESP 18; O2SAT 98
--- NOTE | 2017-01-01 14:32 | PD ---
History of Present Illness Chief Complaint: Psychiatric Symptoms Time Seen by Provider: 14:00 Travel History International Travel<30 Days: No Contact w/Intl Traveler<30days: No Known affected area: No Legal Status Legal Status: Voluntary History of Present Illness: History of Present Illness HPI Patient is a 36-year-old AA male presenting to the emergency department voluntarily reporting suicidal ideation. ED documentation is as follows " Patient states she's been feeling this way all day, he states he's been depressed and he is on Prozac but it's not working for him. He reports a previous suicide attempt last year by overdose. Patient also states he's been hearing voices that are telling him to run into traffic." . He was monitored in J pod and he presented no behavioral concerns and no suicidality. MR reviewed. Patient was last admitted to [facility] in November of 2016 under the care of Dr. Willis for treatment of substance induced psychosis. He was also admitted in November of 2015 after a reported suicide attempt. Patient seen. EMR reviewed. Current toxicology is positive for cocaine and cannabinoids. He is awake, alert. He answers questions with low tone. States " I came to the hospital because I was depressed and suicidal with thoughts of wanting to hurt myself". Verbalizes no current plan. Also verbalizes feeling paranoid, hearing voices and feels that people are following him". Patient reports that after his discharge he did not continue to take his medication because it made him feel restless and tired. PFSH Past Medical History Anxiety: Yes Depression: Yes Diminished Hearing: No Genitourinary: No Hepatitis: Yes (HCV) Musculoskeletal: No Neurologic: No Psychiatric: Yes Reproductive: No Respiratory: No Immunizations Current: Yes (HBV) Tetanus Vaccination: Unknown Past Surgical History Abdominal Surgery: No Cardiac Surgery: No Ear Surgery: No Endocrine Surgery: No Eye Surgery: No Genitourinary Surgery: No Gynecologic Surgery: No Oral Surgery: No Thoracic Surgery: No Psychiatric History Psychiatric History Hx Psychiatric Treatment: Last inpatient admit at [facility] Dec 20 2016. Receives outpatietn care at [facility] History of Inpatient Treatment: Yes Guns or firearms in home: No Social History Single male. Homeless Hx Alcohol Use: Yes (malt liquor) Hx Tobacco Use: Yes (1ppd) Hx Substance Use: Yes (opiates, cocaine, marijuana) Substance Use Type: Alcohol, Nicotine/Cigarettes, Cocaine, Synth Opiates-Pain Pills Hx of Substance Use Treatment: No Family Psychiatric History Negative Allergies-Medications (Allergen,Severity, Reaction): Coded Allergies: No Known Allergies (Unverified , 12/31/16) Reported Meds & Prescriptions Reported Meds & Active Scripts Active Quetiapine (Quetiapine Fumarate) 200 Mg Tab 200 Mg PO HS 7 Days Fluoxetine (Pmdd) 10 Mg Cap 30 Mg PO DAILY 7 Days Review of Systems Except as stated in HPI: all other systems reviewed are Neg Exam Alert: Yes [place]: Person (ox4) Mood: Calm Affect: Restricted Speech: Clear, Logical Eye Contact: None Memory Intact: Comment (No impairment) Delusions: Yes Delusion Type: Paranoid Suicidal: Ideation (Negative) Homicidal: Ideation (Negative) Insight/Judgement Poor. Not impaired. MDM Medical Decision Making Medical Record Reviewed: Yes Assessment/Plan Patient is a 36-year-old AA male presenting to the emergency department voluntarily reporting suicidal ideation. ED documentation is as follows " Patient states she's been feeling this way all day, he states he's been depressed and he is on Prozac but it's not working for him. He reports a previous suicide attempt last year by overdose. Patient also states he's been hearing voices that are telling him to run into traffic. Patient will be medicated with Seroquel. Will monitor for effectiveness. Will disposition once he is cleared from acute effects of cocaine, and not reporting suicidal ideation. Orders Orders Complete Blood Count With Diff (12/31/16 23:05) Comprehensive Metabolic Panel (12/31/16 23:05) Psych Screen (12/31/16 23:05) Drug Screen, Random Urine (12/31/16 23:05) Alcohol (Ethanol) (12/31/16 23:05) Potassium Chloride (Kcl) (01/01/17 01:00) Diet Regular Basic (01/01/17 Breakfast) Diet Regular Basic (01/01/17 Lunch) Diet Regular Basic (01/01/17 Dinner) Results Vital Signs Date Time Temp Pulse Resp B/P (MAP) Pulse Ox O2 Delivery O2 Flow Rate FiO2 9/6/17 06:22 74 18 106/55 (72) 98 01/01/17 02:10 80 18 108/64 (79) 98 12/31/16 22:08 99.3 100 16 114/77 (89) 98 Laboratory Tests Test 12/31/16 23:15 12/31/16 23:45 White Blood Count 7.0 Red Blood Count 4.85 Hemoglobin 14.5 Hematocrit 43.0 Mean Corpuscular Volume 88.7 Mean Corpuscular Hemoglobin 29.9 Mean Corpuscular Hemoglobin Concent 33.8 Red Cell Distribution Width 13.4 Platelet Count 213 Mean Platelet Volume 7.1 Neutrophils (%) (Auto) 48.0 Lymphocytes (%) (Auto) 37.4 Monocytes (%) (Auto) 9.7 Eosinophils (%) (Auto) 4.4 Basophils (%) (Auto) 0.5 Neutrophils # (Auto) 3.4 Lymphocytes # (Auto) 2.6 Monocytes # (Auto) 0.7 Eosinophils # (Auto) 0.3 Basophils # (Auto) 0.0 CBC Comment DIFF FINAL Differential Comment Blood Urea Nitrogen 12 Creatinine 1.22 Random Glucose 90 Total Protein 7.8 Albumin 3.5 Calcium Level 8.8 Alkaline Phosphatase 52 Aspartate Amino Transf (AST/SGOT) 20 Alanine Aminotransferase (ALT/SGPT) 41 Total Bilirubin 0.5 Sodium Level 141 Potassium Level 3.2 Chloride Level 104 Carbon Dioxide Level 30.3 Anion Gap 7 Estimat Glomerular Filtration Rate 81 Ethyl Alcohol Level LESS THAN 3 Urine Opiates Screen NEG Urine Barbiturates Screen NEG Urine Amphetamines Screen NEG Urine Benzodiazepines Screen NEG Urine Cocaine Screen POS Urine Cannabinoids Screen POS Diagnosis Primary Impression: Cocaine-induced mood disorder Additional Impression: Substance abuse Condition: Stable Problem Qualifiers Anna Marie Baumann DRIVER'S LICENSE EXAMINER Jan 01, 2017 14:32
[2017-01-01] MEDS ORDERED: QUEtiapine FUMARATE 200 MG TAB PO ONE (15:00)
[2017-01-01 23:28] VITALS: BP 137/64; PULSE 87; RESP 16; TEMP 97.8; O2SAT 98
[2017-01-02 02:15] VITALS: BP 102/57; PULSE 69; RESP 18; TEMP 98; O2SAT 96
[2017-01-02 05:48] VITALS: BP 103/62; PULSE 67; RESP 16; TEMP 98; O2SAT 97
--- NOTE | 2017-01-02 11:57 | HHI.PYPN ---
Subjective Remarks Patient seen today at 11:45. Patient seen. EMR reviewed. History of Present Illness HPI Patient is a 36-year-old AA male presenting to the emergency department voluntarily reporting suicidal ideation. ED documentation is as follows " Patient states she's been feeling this way all day, he states he's been depressed and he is on Prozac but it's not working for him". The patient with positive toxicology for cocaine and cannabinoids. He was monitored in J pod for extended period of time and he presented no behavioral dysregulation and no suicidality. he was observed interacting appropriately with different staff members making his needs met in an appropriate manner. However when he met with this insurance underwriter he presented as withdrawn with very low tone of voice. He presented in the same manner with the [facility] patient case manager. This morning he is awake, alert, oriented. Speech is clear. Does not appear to be responding to internal stimuli.No suicidal or homicidal ideation. However patient appears to be wanting to extend his stay here in the Ed. He does not present criteria at this time for inpatient treatment. Review of Systems Except as stated in HPI: all other systems reviewed are Neg Objective Alert: Yes [place]: Person (ox4) Mood: Calm Affect: Restricted Memory Intact: Comment (No impairment) Hallucinations: Other (negative) Delusions: No Delusion Type: Paranoid Suicidal: Ideation (negative) Homicidal: Ideation (Negative.) Insight/Judgment Poor. Not impaired Vitals/IOs Vital Signs Date Time Temp Pulse Resp B/P (MAP) Pulse Ox O2 Delivery O2 Flow Rate FiO2 01/02/17 05:48 98.0 67 16 103/62 (76) 97 Assessment & Plan Problem List: (1) Cocaine-induced mood disorder ICD Codes: F14.94 - Cocaine use, unspecified with cocaine-induced mood disorder Status: Acute (2) Cocaine abuse with unspecified cocaine-induced disorder ICD Codes: F14.19 - Cocaine abuse with unspecified cocaine-induced disorder Status: Resolved (3) Cocaine abuse ICD Codes: F14.10 - Cocaine abuse, uncomplicated Status: Chronic Assessment & Plan Patient has been monitored in safe environment. Has been medicated. Has not presented any suicidality. he appears to present different for different staff members and has been observed interacting appropriately with staff members. Does not meet criteria for inpatient treatment at this time.Main issue seems to be substance abuse. He is to his basic needs. he has medications with him. Encouraged to maintain contact with his [facility] patient case manager. Justification for Cont. Inpt. Does not meet criteria Discharge Planning Discharge from J pod. Follow up with [facility]. Has medications in his possession. Anna Marie Baumann Jan 02, 2017 11:57
--- NOTE | 2017-01-02 12:02 | PD ---
Physical Exam Time Seen by Provider: 12:00 Rosey Thrasher has evaluated the patient in the patient will be discharged home. Data Data Last Documented VS Vital Signs Date Time Temp Pulse Resp B/P (MAP) Pulse Ox O2 Delivery O2 Flow Rate FiO2 01/02/17 05:48 98.0 67 16 103/62 (76) 97 Orders Orders Complete Blood Count With Diff (12/31/16 23:05) Comprehensive Metabolic Panel (12/31/16 23:05) Psych Screen (12/31/16 23:05) Drug Screen, Random Urine (12/31/16 23:05) Alcohol (Ethanol) (12/31/16 23:05) Potassium Chloride (Kcl) (01/01/17 01:00) Diet Regular Basic (01/01/17 Breakfast) Diet Regular Basic (01/01/17 Lunch) Diet Regular Basic (01/01/17 Dinner) Quetiapine (Seroquel) (01/01/17 15:00) Diet Regular Basic (01/02/17 Breakfast) Diet Regular Basic (01/02/17 Lunch) Labs Laboratory Tests Test 12/31/16 23:15 12/31/16 23:45 White Blood Count 7.0 TH/MM3 Red Blood Count 4.85 MIL/MM3 Hemoglobin 14.5 GM/DL Hematocrit 43.0 % Mean Corpuscular Volume 88.7 FL Mean Corpuscular Hemoglobin 29.9 PG Mean Corpuscular Hemoglobin Concent 33.8 % Red Cell Distribution Width 13.4 % Platelet Count 213 TH/MM3 Mean Platelet Volume 7.1 FL Neutrophils (%) (Auto) 48.0 % Lymphocytes (%) (Auto) 37.4 % Monocytes (%) (Auto) 9.7 % Eosinophils (%) (Auto) 4.4 % Basophils (%) (Auto) 0.5 % Neutrophils # (Auto) 3.4 TH/MM3 Lymphocytes # (Auto) 2.6 TH/MM3 Monocytes # (Auto) 0.7 TH/MM3 Eosinophils # (Auto) 0.3 TH/MM3 Basophils # (Auto) 0.0 TH/MM3 CBC Comment DIFF FINAL Differential Comment Blood Urea Nitrogen 12 MG/DL Creatinine 1.22 MG/DL Random Glucose 90 MG/DL Total Protein 7.8 GM/DL Albumin 3.5 GM/DL Calcium Level 8.8 MG/DL Alkaline Phosphatase 52 U/L Aspartate Amino Transf (AST/SGOT) 20 U/L Alanine Aminotransferase (ALT/SGPT) 41 U/L Total Bilirubin 0.5 MG/DL Sodium Level 141 MEQ/L Potassium Level 3.2 MEQ/L Chloride Level 104 MEQ/L Carbon Dioxide Level 30.3 MEQ/L Anion Gap 7 MEQ/L Estimat Glomerular Filtration Rate 81 ML/MIN Ethyl Alcohol Level LESS THAN 3 MG/DL Urine Opiates Screen NEG Urine Barbiturates Screen NEG Urine Amphetamines Screen NEG Urine Benzodiazepines Screen NEG Urine Cocaine Screen POS Urine Cannabinoids Screen POS MDM Supervised Visit with CELSO: No Narrative Course Anna Marie has evaluated the patient in the patient will be discharged home. Patient contracts safety. Denies suicidal or homicidal ideations. Patient will be provided with community information for follow-up and to follow-up with [facility]. He has medications for his depression. He has family and friends for support. Patient is medically cleared for discharge. Diagnosis Primary Impression: Cocaine-induced mood disorder Additional Impression: Substance abuse Referrals: Primary Care Physician Psychiatrist [facility] Patient Instructions: Cocaine Abuse (ED), General Instructions, Mood Disorders (ED) Additional Instruction: Contract safety to your self and others Stop using cocaine and any other illegal drugs Follow-up with psychiatry Follow-up with primary care provider Follow-up with Myles Mckeon Return to the emergency department immediately with worsening of symptoms Disposition: 01 DISCHARGE HOME Condition: Stable Alyssa Ramos Jan 02, 2017 12:02
== END 2017-01-02 12:39 | disposition home or self-care (01) ==
LOC: NEPD 22:06 → NEPJ 01-02 12:39
DX: F14.94 Cocaine use, unspecified with cocaine-induced mood disorder (principal); F19.10 Other psychoactive substance abuse, uncomplicated; F41.9 Anxiety disorder, unspecified; F32.9 Major depressive disorder, single episode, unspecified; F17.200 Nicotine dependence, unspecified, uncomplicated; Z86.19 Personal history of other infectious and parasitic diseases; Z59.0 Homelessness; Z79.899 Other long term (current) drug therapy
CPT/HCPCS: 80053; 80307; 85025; 99284

== ENCOUNTER 2017-01-03 11:09 | Emergency (ER) | payer SELFPAY ==
[~2017-01-03] VITALS: Ht 180.3 cm; Wt 75.0 kg
[2017-01-03 11:12] VITALS: BP 104/64; PULSE 114; RESP 16; TEMP 98.4; O2SAT 98
--- NOTE | 2017-01-03 11:46 | PD ---
HPI Chief Complaint: Psychiatric Symptoms Time Seen by Provider: 11:39 Travel History International Travel<30 days: No Contact w/Intl Traveler<30days: No Traveled to known affect area: No History of Present Illness HPI Patient comes in requesting psychiatric evaluation for suicidal thoughts that began about an hour prior to his arrival. Patient states that he feels though he had a nervous breakdown and that his psych meds are not working. Patient states he has tried killing himself in the past by taking pills and that was his plan this time but denies actual taking anything today. Patient denies any medical complaints at this time. Denies any chest pain, shortness of breath, fevers, no pain, nausea, vomiting, or headaches. PFSH Past Medical History Anxiety: Yes Depression: Yes Diminished Hearing: No Genitourinary: No Hepatitis: Yes Musculoskeletal: No Neurologic: No Psychiatric: Yes Reproductive: No Respiratory: No Immunizations Current: Yes (HBV) Tetanus Vaccination: < 5 Years ?: Not Past Surgical History Abdominal Surgery: No Cardiac Surgery: No Ear Surgery: No Endocrine Surgery: No Eye Surgery: No Genitourinary Surgery: No Gynecologic Surgery: No Oral Surgery: No Thoracic Surgery: No Other Surgery: Yes Social History Alcohol Use: Yes (malt liquor) Tobacco Use: Yes (1ppd) Substance Use: Yes (opiates, cocaine, marijuana) Allergies-Medications (Allergen,Severity, Reaction): Coded Allergies: No Known Allergies (Unverified , 01/03/17) Reported Meds & Prescriptions Reported Meds & Active Scripts Active Quetiapine (Quetiapine Fumarate) 200 Mg Tab 200 Mg PO HS 7 Days Review of Systems Except as stated in HPI: all other systems reviewed are Neg Physical Exam Narrative GENERAL: Well-developed, well nourished, in no acute distress, and non-ill appearing. SKIN: Focused skin assessment warm and dry. HEAD: Atraumatic. Normocephalic. EYES: Pupils equal and round. EOMI. No scleral icterus. No injection or drainage. ENT: No nasal bleeding or discharge. Mucous membranes pink and moist. NECK: Trachea midline. Supple. No nuclear rigidity. CARDIOVASCULAR: Regular rate and rhythm. No murmur appreciated. RESPIRATORY: No accessory muscle use. No respiratory distress. Clear to auscultation. Breath sounds equal bilaterally. MUSCULOSKELETAL: No obvious deformities. No clubbing. No cyanosis. No edema. Full range of motion. NEUROLOGICAL: Awake and alert. No obvious cranial nerve deficits. Motor grossly within normal limits. Normal speech. PSYCHIATRIC: Appropriate mood and affect; insight and judgment normal. Data Data Last Documented VS Vital Signs Date Time Temp Pulse Resp B/P (MAP) Pulse Ox O2 Delivery O2 Flow Rate FiO2 01/03/17 11:12 98.4 114 16 104/64 (77) 98 Orders Orders Complete Blood Count With Diff (01/03/17 11:39) Comprehensive Metabolic Panel (01/03/17 11:39) Psych Screen (01/03/17 11:39) Drug Screen, Random Urine (01/03/17 11:39) Alcohol (Ethanol) (01/03/17 11:39) Salicylates (Aspirin) (01/03/17 11:39) Tylenol (Acetaminophen) (01/03/17 11:39) Labs Laboratory Tests Test 01/03/17 11:45 White Blood Count 14.5 TH/MM3 Red Blood Count 4.89 MIL/MM3 Hemoglobin 14.5 GM/DL Hematocrit 43.5 % Mean Corpuscular Volume 89.0 FL Mean Corpuscular Hemoglobin 29.6 PG Mean Corpuscular Hemoglobin Concent 33.3 % Red Cell Distribution Width 13.4 % Platelet Count 242 TH/MM3 Mean Platelet Volume 7.1 FL Neutrophils (%) (Auto) 82.0 % Lymphocytes (%) (Auto) 11.1 % Monocytes (%) (Auto) 4.5 % Eosinophils (%) (Auto) 2.0 % Basophils (%) (Auto) 0.4 % Neutrophils # (Auto) 11.9 TH/MM3 Lymphocytes # (Auto) 1.6 TH/MM3 Monocytes # (Auto) 0.7 TH/MM3 Eosinophils # (Auto) 0.3 TH/MM3 Basophils # (Auto) 0.1 TH/MM3 CBC Comment DIFF FINAL Differential Comment Blood Urea Nitrogen 13 MG/DL Creatinine 1.21 MG/DL Random Glucose 70 MG/DL Total Protein 7.6 GM/DL Albumin 3.3 GM/DL Calcium Level 8.5 MG/DL Alkaline Phosphatase 49 U/L Aspartate Amino Transf (AST/SGOT) 35 U/L Alanine Aminotransferase (ALT/SGPT) 41 U/L Total Bilirubin 0.8 MG/DL Sodium Level 138 MEQ/L Potassium Level 4.0 MEQ/L Chloride Level 104 MEQ/L Carbon Dioxide Level 27.6 MEQ/L Anion Gap 6 MEQ/L Estimat Glomerular Filtration Rate 81 ML/MIN Salicylates Level LESS THAN 1.7 MG/DL Acetaminophen Level LESS THAN 2.0 MCG/ML Ethyl Alcohol Level LESS THAN 3 MG/DL MDM Medical Decision Making Medical Screen Exam Complete: Yes Emergency Medical Condition: Yes Differential Diagnosis Homicidal, suicidal, substance abuse, electrolyte abnormality, depression, other Narrative Course Patient was seen and examined. Labs were obtained and reviewed with the exception urine drug screen that has not been collected yet. Patient medically cleared for further treatment and evaluation by psych. Final disposition per psych. Diagnosis Primary Impression: Medical clearance for psychiatric admission Condition: Stable Marin Quinones Jan 03, 2017 11:46
[2017-01-03 12:02] LABS: AUTOMATED NEUTROPHIL # 11.9 TH/MM3 (1.8-7.7); BASOPHIL # 0.1 TH/MM3 (0-0.2); BASOPHIL % 0.4 % (0.0-2.0); EOSINOPHIL # 0.3 TH/MM3 (0-0.4); HEMATOCRIT 43.5 % (39.0-51.0); HEMO FLAGS DIFF FINAL; LYMPH % 11.1 % (9.0-44.0); LYMPHOCYTE # 1.6 TH/MM3 (1.0-4.8); MEAN CORPUSCULAR HEMOGLOBIN 29.6 PG (27.0-34.0); MEAN CORPUSCULAR HGB CONC 33.3 % (32.0-36.0); MONO % 4.5 % (0.0-8.0); PLATELET COUNT 242 TH/MM3 (150-450); RED BLOOD COUNT 4.89 MIL/MM3 (4.50-5.90); RED CELL DISTRIBUTION WIDTH 13.4 % (11.6-17.2); WHITE BLOOD COUNT 14.5 TH/MM3 (4.0-11.0)
[2017-01-03 12:19] LABS: ALKALINE PHOSPHATASE 49 U/L (45-117); TOTAL BILIRUBIN ADULT 0.8 MG/DL (0.2-1.0)
[2017-01-03 12:39] LABS: ALT (GPT) 41 U/L (12-78); ANION GAP 6 MEQ/L (5-15); AST (GOT) 35 U/L (15-37); BICARBONATE 27.6 MEQ/L (21.0-32.0); BLOOD UREA NITROGEN 13 MG/DL (7-18); CHLORIDE 104 MEQ/L (98-107); GLOMERULAR FILTRATION RATE 81 ML/MIN (>89); SODIUM (NA) 138 MEQ/L (136-145)
[2017-01-03 12:40] LABS: ACETAMINOPHEN LESS THAN 2.0 MCG/ML (10.0-30.0); ALCOHOL LESS THAN 3 MG/DL (0-5)
[2017-01-03 13:49] VITALS: BP 110/68; PULSE 94; RESP 20; O2SAT 97
[2017-01-03 22:41] VITALS: RESP 18
[2017-01-04 06:26] VITALS: BP 117/66; PULSE 75; RESP 18; O2SAT 97
== END 2017-01-04 16:53 | disposition home or self-care (01) ==
LOC: NEPD 11:09 → NEPJ 01-04 16:53
DX: R45.851 Suicidal ideations (principal); F17.200 Nicotine dependence, unspecified, uncomplicated; Z79.899 Other long term (current) drug therapy
CPT/HCPCS: 80053; 80307; 85025; 99284

== ENCOUNTER 2017-01-16 16:27 | Emergency (ER) | payer SELFPAY ==
[~2017-01-16] VITALS: Ht 180.3 cm; Wt 82.0 kg
[~2017-01-16 16:27] MED LIST changes: -FLUO10CA4 PO
[2017-01-16 16:33] VITALS: BP 127/72; PULSE 87; RESP 16; TEMP 98.8; O2SAT 98
--- NOTE | 2017-01-16 16:35 | PD ---
Physical Exam Date Seen by Provider: Jan 16, 2017 Time Seen by Provider: 16:33 Narrative 28-year-old Afro-[place] male presents to emergency room with 2 day history of worsening right lower jaw pain, swelling, with pus oozing from the right posterior tooth. Patient has mild difficulty swallowing secondary to pain. Patient denies fever or chills. Pain is 10 over 10. Patient has been using [id number] medications without improvement. Patient has no known drug allergies. Vital signs are stable. Patient is awaiting med bed placement. Data Data Last Documented VS Vital Signs Date Time Temp Pulse Resp B/P (MAP) Pulse Ox O2 Delivery O2 Flow Rate FiO2 01/16/17 16:33 98.8 87 16 127/72 (90) 98 MDM Medical Record Reviewed: Yes Supervised Visit with CELSO: Yes Condition: Stable Artemio Martinez Jan 16, 2017 16:35
[2017-01-16] MEDS ORDERED: NAPROXEN 500 MG TAB PO ONE (17:15)
--- NOTE | 2017-01-16 17:17 | PD ---
HPI Chief Complaint: Oral / Dental Pain or Problem Time Seen by Provider: 17:11 Travel History International Travel<30 days: No Contact w/Intl Traveler<30days: No Traveled to known affect area: No History of Present Illness HPI Patient comes in complaining of right lower dental pain ongoing for a few days. Patient tried [id number] Tylenol and Orajel with no improvement of symptoms. Worse with eating, drinking, and smoking. Patient denies anything like this in the past. Denies any fevers, neck pain, nausea, vomiting, or difficulty swallowing. PFSH Past Medical History Anxiety: Yes Depression: Yes Diminished Hearing: No Genitourinary: No Hepatitis: Yes Musculoskeletal: No Neurologic: No Psychiatric: Yes Reproductive: No Respiratory: No Immunizations Current: Yes (HBV) Past Surgical History Abdominal Surgery: No Cardiac Surgery: No Ear Surgery: No Endocrine Surgery: No Eye Surgery: No Genitourinary Surgery: No Gynecologic Surgery: No Oral Surgery: No Thoracic Surgery: No Other Surgery: Yes Social History Alcohol Use: Yes (malt liquor) Tobacco Use: Yes (1ppd) Substance Use: Yes (opiates, cocaine, marijuana) Allergies-Medications (Allergen,Severity, Reaction): Coded Allergies: No Known Allergies (Unverified , 01/16/17) Reported Meds & Prescriptions Reported Meds & Active Scripts Active Naprosyn (Naproxen) 500 Mg Tab 500 Mg PO Q12HR PRN Clindamycin (Clindamycin HCl) 150 Mg Cap 2 Tab PO Q6H 10 Days Quetiapine (Quetiapine Fumarate) 200 Mg Tab 200 Mg PO HS 7 Days Review of Systems Except as stated in HPI: all other systems reviewed are Neg Physical Exam Narrative GENERAL: Well-developed, well nourished, in no acute distress, and non-ill appearing. SKIN: Focused skin assessment warm and dry. HEAD: Atraumatic. Normocephalic. EYES: Pupils equal and round. EOMI. No scleral icterus. No injection or drainage. ENT: No nasal bleeding or discharge. Mucous membranes pink and moist. Poor dentition with visible palpable dental abscess noted right lower mandible. Floor of mouth, submandibular, and submental are all soft to palpation. Patient able to swallow saliva. Uvula is midline. NECK: Trachea midline. No cervical lymphadenopathy. Supple. No nuclear rigidity. RESPIRATORY: No accessory muscle use. No respiratory distress. MUSCULOSKELETAL: No obvious deformities. No clubbing. No cyanosis. No edema. Full range of motion. NEUROLOGICAL: Awake and alert. No obvious cranial nerve deficits. Motor grossly within normal limits. Normal speech. PSYCHIATRIC: Appropriate mood and affect; insight and judgment normal. Data Data Last Documented VS Vital Signs Date Time Temp Pulse Resp B/P (MAP) Pulse Ox O2 Delivery O2 Flow Rate FiO2 01/16/17 17:24 01/16/17 16:33 98.8 87 16 98 Orders Orders Naproxen (Naprosyn) (01/16/17 17:15) [facility] Medical Decision Making Medical Screen Exam Complete: Yes Emergency Medical Condition: Yes Differential Diagnosis Dental abscess, dental infection, dentalgia, other Narrative Course The patient presented with dental pain. There is no fever. There is no significant facial swelling or evidence of cellulitis. There is poor dentition and evidence of drainable abscess. The abscess was drained intraorally. The patient tolerated the procedure well. There is no evidence of significant deep or invading abscess at this time. The patient will be placed on antibiotics and pain medication. The patient was instructed to follow up with a dentist. The patient was given the dental referral sheet. Warnings were discussed with the patient regarding worsening of infection. The patient is to return if pain worsens, develops progressive swelling or facial redness or fever. The patient agrees with plan. Patient in no obvious distress upon re-evaluation. Patient was asked if they wanted to speak to my attending, which the patient did not wish to do at this time. Any questions/concerns in reference to patient diagnosis/condition discussed and clarified prior to patient's discharge. Reinforced sheer importance of close follow up with patient's primary physician or primary care clinic. Instructed patient to return to ED immediately, if symptoms return/ worsen. Pt showed understanding of above instructions. Further instructions and recommendations were detailed in discharge paperwork. Pt ambulated without difficulty out of ED at discharge. Procedures Procedure Narrative Verbal consent was obtained. Topical Hurricaine spray was used to successfully anesthetized the abscess. A #15 scalpel used to make 0.5 cm incision across the area of abscess and purulent discharge was drained. Patient tolerated procedure well. There were no complications. Diagnosis Primary Impression: Dental abscess Patient Instructions: Dental Abscess (ED), General Instructions Additional Instructions: Follow-up with your primary care physician and dentist as soon as possible. Rinse mouth with warm salt water gargles. Take all medication as prescribed. Return to the emergency department if symptoms get worse. Med/Other Pt SpecificInfo: Prescription(s) given Scripts Naproxen (Naprosyn) 500 Mg Tab 500 MG PO Q12HR Y for PAIN SCALE 1 TO 10, #14 TAB 0 Refills Prov: Mainor Fisher MD 01/16/17 Clindamycin (Clindamycin) 150 Mg Cap 2 TAB PO Q6H for Infection for 10 Days, CAP 0 Refills Prov: Mainor Fisher MD 01/16/17 Disposition: 01 DISCHARGE HOME Condition: Stable Marin Quinones Jan 16, 2017 17:17
[2017-01-16] MEDS ORDERED: CLIN1CAP5 PO (17:18)
[2017-01-16] MEDS ORDERED: NAPR500 PO (17:18)
== END 2017-01-16 17:43 | disposition home or self-care (01) ==
LOC: NEPK 16:27
DX: K04.7 Periapical abscess without sinus (principal); F41.9 Anxiety disorder, unspecified; F32.9 Major depressive disorder, single episode, unspecified; F17.200 Nicotine dependence, unspecified, uncomplicated; Z86.19 Personal history of other infectious and parasitic diseases
CPT/HCPCS: 41800